=== PATIENT | female | born 1985 | race Caucasian/White ===

== ENCOUNTER 2018-05-26 17:35 | Emergency (ER) | payer SELFPAY ==
[~2018-05-26] VITALS: Ht 165.1 cm; Wt 47.7 kg
[~2018-05-26 17:35] MED LIST: LEVAQUIN 5500 MG/TA1 PO
[2018-05-26 17:42] VITALS: BP 122/86; TEMP 98.6
[2018-05-26] MEDS ORDERED: PRENATAL (18:09)
[2018-05-26] MEDS ORDERED: BACTRIM DS 8001 TAB PO (18:21)
[2018-05-26] MEDS ORDERED: CEPHALEXIN500 M1 PO (18:21)
[2018-05-26 18:30] VITALS: PULSE 76
== END 2018-05-26 18:30 | disposition home or self-care (01) ==
LOC: COL.ER 17:35
DX: L02.416 Cutaneous abscess of left lower limb (principal)

== ENCOUNTER 2018-05-30 21:06 | Emergency (ER) | payer SELFPAY ==
[~2018-05-30] VITALS: Ht 165.1 cm; Wt 47.7 kg
[~2018-05-30 21:06] MED LIST changes: +BACTRIM DS 8001 TAB PO; +CEPHALEXIN500 M1 PO; +PRENATAL
[2018-05-30 21:09] VITALS: TEMP 97.3
[2018-05-30] MEDS ORDERED: DOXYCYCLINE 10100 MG PO (23:15)
[2018-05-30] MEDS ORDERED: PREDNISONE20 MG PO (23:15)
[2018-05-30 23:41] VITALS: BP 119/78; PULSE 73
== END 2018-05-30 23:42 | disposition home or self-care (01) ==
LOC: COL.ER 21:06
DX: T36.1X5A Adverse effect of cephalosporins and other beta-lactam antibiotics, initial encounter (principal); T37.0X5A Adverse effect of sulfonamides, initial encounter; F17.210 Nicotine dependence, cigarettes, uncomplicated; Z98.51 Tubal ligation status; Z98.890 Other specified postprocedural states
CPT/HCPCS: J0171; J7512

== ENCOUNTER 2018-07-20 19:25 | Emergency (ER) | payer SELFPAY ==
[~2018-07-20] VITALS: Ht 165.1 cm; Wt 51.8 kg
[~2018-07-20 19:25] MED LIST changes: +DOXYCYCLINE 10100 MG PO; +PREDNISONE20 MG PO
[2018-07-20 19:28] VITALS: BP 140/90; TEMP 98
[2018-07-20] MEDS ORDERED: PREDNISONE20 MG PO (21:04)
[2018-07-20] MEDS ORDERED: ZITHROMAX Z PA250 MG PO (21:04)
[2018-07-20 21:42] VITALS: PULSE 107
== END 2018-07-20 21:47 | disposition home or self-care (01) ==
LOC: COL.ER 19:25
DX: J20.9 Acute bronchitis, unspecified (principal); F17.210 Nicotine dependence, cigarettes, uncomplicated; Z98.51 Tubal ligation status; Z98.890 Other specified postprocedural states
CPT/HCPCS: J7512